=== PATIENT | female | born 1970 | race Caucasian/White ===

== ENCOUNTER 2018-08-05 08:03 | Outpatient (CLI) | payer OTHER ==
[2018-08-05 08:59] LABS: BASOPHILS # (AUTO) 0.04 x10^3/uL (0-0.1); BASOPHILS % (AUTO) 0 % (0-1); EOSINOPHILS # (AUTO) 0.21 x10^3/uL (0-0.4); EOSINOPHILS % (AUTO) 2 % (1-7); LYMPHOCYTES # (AUTO) 2.81 x10^3/uL (1-3.4); LYMPHOCYTES % (AUTO) 30 % (22-44); MD NO; MEAN CORPUSCULAR HEMOGLOBIN 28.4 pg (27.0-34.8); MEAN CORPUSCULAR HGB CONC 31.7 g/dL (32.4-35.8); MEAN CORPUSCULAR VOLUME 89.5 fL (80-100); MEAN PLATELET VOLUME 6.2 fL (7.4-10.4); MONOCYTES # (AUTO) 0.95 x10^3/uL (0.2-0.8); MONOCYTES % (AUTO) 10 % (2-9); NEUTROPHILS # (AUTO) 5.44 x10^3/uL (1.8-6.8); NEUTROPHILS % (AUTO) 58 % (42-75); PLATELET COUNT 379 x10^3/uL (130-400); RED BLOOD COUNT 5.64 x10^6/uL (3.82-5.3); RED CELL DISTRIBUTION WIDTH 13.1 % (9.6-15.2)
[2018-08-05 09:18] LABS: CHLORIDE 106 mmol/L (98-107)
[2018-08-05 09:27] LABS: ALANINE AMINOTRANSFERASE 30 U/L (12-78); ALBUMIN 3.9 g/dL (3.4-5.0); ALKALINE PHOSPHATASE 57 U/L (45-117); ANION GAP 6 mmol/L (5-15); BILIRUBIN,TOTAL 0.6 mg/dL (0.2-1.0); CREATININE 0.85 mg/dL (0.55-1.02); TOTAL PROTEIN 6.8 g/dL (6.4-8.2)
[2018-08-08] MEDS ORDERED: FLUT9.9S NAS (07:41)
[2018-08-08] MEDS ORDERED: MULT1TAB9 PO (07:41)
[2018-08-08] MEDS ORDERED: DULO60CA55 PO (07:41)
[2018-08-08] MEDS ORDERED: LOSA50TA14 PO (07:41)
[2018-08-08] MEDS ORDERED: SIMV20TA3 PO (07:41)
[2018-08-08] MEDS ORDERED: LEVO100T5 PO (07:41)
[2018-08-08] MEDS ORDERED: LORA10TA75 PO (07:41)
== END 2018-08-05 23:59 | disposition home or self-care (01) ==
LOC: STAR 08:03
PROVIDERS: ATTEND Specialist
DX: Z01.818 Encounter for other preprocedural examination (principal); D25.0 Submucous leiomyoma of uterus; D75.1 Secondary polycythemia; Z88.6 Allergy status to analgesic agent
CPT/HCPCS: 36415; 80053; 84703; 85025

== ENCOUNTER 2018-08-11 05:32 | Day surgery (SDC) | payer OTHER ==
[~2018-08-11] VITALS: Ht 177.8 cm; Wt 76.4 kg
[~2018-08-11 05:32] MED LIST: DULO60CA55 PO; FLUT9.9S NAS; LEVO100T5 PO; LORA10TA75 PO; LOSA50TA14 PO; MULT1TAB9 PO; SIMV20TA3 PO
[2018-08-11 06:20] VITALS: BP 134/88
[2018-08-11] MEDS ORDERED: LACTATED RINGERS 1,000 ML IV SCH (06:22)
[2018-08-11 06:37] LABS: HCG UR SG 1.024 (1.003-1.030)
[2018-08-11] MEDS ORDERED: BUPIVACAINE/PF 0.25% ONE (07:04)
[2018-08-11] MEDS ORDERED: MIDAZOLAM 1 MG/ML, 2ML ONE (07:15)
[2018-08-11] MEDS ORDERED: FENTANYL PF 250 MCG/5ML ONE (07:15)
[2018-08-11] MEDS ORDERED: SCOPOLAMINE PATCH, 1.5MG PATCH.TD72 TD ONE ×2 (07:25)
[2018-08-11] MEDS ORDERED: ACETAMINOPHEN 500 MG TABLET ONE ×2 (07:25)
[2018-08-11] MEDS ORDERED: GABAPENTIN 300 MG CAPSULE ONE ×2 (07:25)
[2018-08-11] MEDS ORDERED: LABETALOL 5MG/ML, 20ML IV PRN (08:00)
[2018-08-11] MEDS ORDERED: hydrALAzine 20 MG/ML, 1ML IV PRN (08:00)
[2018-08-11] MEDS ORDERED: PROMETHAZINE 25 MG/ML, 1ML IV PRN (08:00)
[2018-08-11] MEDS ORDERED: DIAZEPAM 5 MG/ML, 2ML IVPush PRN (08:00)
[2018-08-11] MEDS ORDERED: HYDROmorphone 2 MG/ML, 1ML IVPush PRN (08:00)
[2018-08-11] MEDS ORDERED: FENTANYL PF 100 MCG/2ML IV PRN (08:00)
[2018-08-11] MEDS ORDERED: OXYcodone 5 MG/5 ML ORAL.SOL UDC PO PRN (08:00)
[2018-08-11] MEDS ORDERED: ALBUTEROL SULFATE 2.5 MG/3 ML NPPB PRN (08:00)
[2018-08-11] MEDS ORDERED: MEPERIDINE/PF 25MG/0.5ML IVPush PRN (08:00)
[2018-08-11] MEDS ORDERED: FLUORESCEIN SODIUM 500 MG/5 ML ONE (08:16)
[2018-08-11] MEDS ORDERED: DEXAMETHASONE 4 MG/ML, 1ML ONE (10:45)
[2018-08-11] MEDS ORDERED: NEOSTIGMINE 1 MG/ML, 10ML ONE (10:45)
[2018-08-11] MEDS ORDERED: PROPOFOL 10 MG/ML, 20ML ONE (10:45)
[2018-08-11] MEDS ORDERED: ONDANSETRON 2MG/ML, 2ML ONE (10:45)
[2018-08-11] MEDS ORDERED: CEFAZOLIN 1,000 MG ONE (10:45)
[2018-08-11] MEDS ORDERED: GLYCOPYRROLATE 0.2MG/1ML, 5ML ONE (10:45)
[2018-08-11] MEDS ORDERED: SUCCINYLCHOLINE 20 MG/ML, 10ML ONE (10:45)
[2018-08-11] MEDS ORDERED: ROCURONIUM 10MG/ML,5ML ONE (10:45)
[2018-08-11] MEDS ORDERED: OXYcodone 5 MG/5 ML ORAL.SOL UDC ONE (11:12)
[2018-08-11] MEDS ORDERED: PROMETHAZINE 12.5 MG SUPP PR ONE ×2 (12:18→12:30)
== END 2018-08-11 14:20 | disposition home or self-care (01) ==
LOC: OR 05:32
PROVIDERS: ATTEND Specialist
DX: D25.2 Subserosal leiomyoma of uterus (principal); D45 Polycythemia vera; N32.3 Diverticulum of bladder; N99.71 Accidental puncture and laceration of a genitourinary system organ or structure during a genitourinary system procedure; E03.9 Hypothyroidism, unspecified; G47.33 Obstructive sleep apnea (adult) (pediatric); G43.909 Migraine, unspecified, not intractable, without status migrainosus; Z72.89 Other problems related to lifestyle; Z79.890 Hormone replacement therapy; Z79.899 Other long term (current) drug therapy; Z88.0 Allergy status to penicillin; Z98.890 Other specified postprocedural states; Z82.49 Family history of ischemic heart disease and other diseases of the circulatory system
CPT/HCPCS: 58573; 81025; 88307; J0330; J0690; J1100; J2250; J2405; J2704; J2710; J3010; J3490; J7120; S2900

== ENCOUNTER → 2019-03-18 | Outpatient (CLI) | payer OTHER ==
[~2019-03-18] MED LIST changes: -DULO60CA55 PO; +DULO60CA56 PO
== END | disposition home or self-care (01) ==
LOC: CARD 09:40
PROVIDERS: ATTEND Family Medicine
DX: R07.9 Chest pain, unspecified (principal)
CPT/HCPCS: 93017